=== PATIENT | female | born 1990 | race Caucasian/White ===

== ENCOUNTER 2017-02-18 22:24 | Emergency (ER) | payer OTHER ==
[2017-02-18] MEDS ORDERED: Ondansetron HCl/PF 4 MG/2 ML Vial ONE (22:52)
[2017-02-18 22:53] LABS: Bilirubin Small (Negative); Blood, Urine Moderate (Negative); Glucose, Urine (Dipstick) Negative (Negative); Ketone, Urine Negative (Negative); Nitrite Negative (Negative); Protein, Urine (Dipstick) Trace mg/dL (Neg-Trace); Urobilinogen 0.2 mg/dL (0.2-1.0)
[2017-02-18 22:54] LABS: #Eosinphils 0.2 thou/uL (0.0-0.7); #Lymphocytes 1.4 thou/uL (1.20-3.40); #Monocytes 0.7 thou/uL (0.11-0.59); %Basophils 0.4 % (0.0-1.0); %Eosinophils 1.4 % (0.0-10.0); %Lymphocytes 12.2 % (21.0-51.0); %Monocytes 6.5 % (0.0-10.0); Hematocrit 44.8 % (36.0-47.0); Mean Platelet Volume 9.1 fL (7.4-10.4); Red Blood Cell (RBC) Count 4.61 mill/uL (4.20-5.40); White Blood Cell (WBC) Count 11.3 thou/uL (4.8-10.8)
[2017-02-18 22:55] LABS: Bacteria/HPF None Seen HPF (None Seen)
[2017-02-18 23:10] LABS: Hyaline Casts/LPF 0-3 HYALINE CAST LPF (0-3 Hyaline)
[2017-02-18] MEDS ORDERED: Ketorolac Tromethamine 30 MG/ML VIAL ONE (23:28)
[2017-02-18] MEDS ORDERED: Morphine 4 MG/ML VIAL ONE (23:28)
[2017-02-18 23:35] LABS: ALT (SGPT) 12 U/L (8-55); ALT (SGPT) 14 U/L (8-55); AST (SGOT) 19 U/L (5-34); AST (SGOT) 24 U/L (5-34); Alkaline Phosphatase 79 U/L (40-150); Alkaline Phosphatase 81 U/L (40-150); Anion Gap 14 mmol/L (10-20); BUN (Urea Nitrogen) 13 mg/dL (7.0-18.7); Bilirubin, Direct 0.3 mg/dL (0.1-0.3); Bilirubin, Total 0.6 mg/dL (0.2-1.2); Calc. Creatinine Clearance 0 mL/min (70-130); Calcium 9.3 mg/dL (7.8-10.44); Carbon Dioxide 26 mmol/L (22-29); Chloride 102 mmol/L (98-107); Estimated GFR-MDRD 58; Globulin 3.4 g/dL (2.4-3.5); Lipase 18 U/L (8-78); Protein, Total 7.4 g/dL (6.0-8.3); Protein, Total 7.7 g/dL (6.0-8.3)
--- NOTE | 2017-02-19 07:28 | CT ---
NONCONTRAST ENHANCED CT IMAGES OF THE ABDOMEN AND PELVIS: History: 26-year-old with history of vomiting and left sided pain. FINDINGS: The lung bases are unremarkable. No evidence of free intraperitoneal air is seen. The liver, spleen, gallbladder and pancreas are unremarkable. Adrenal glands are unremarkable. The ri ght kidney is unremarkable. There is a slight degree of perirenal fat stranding surrounding the left kidney. There is also some m ild dilation of the left renal pelvis and ureter. No definite evidence of obstructing calculi is seen . There does appear to be a tiny, approximately 1-2 mm, bladder calculus which may have passed the le ft ureter, not appearing to be in the urinary bladder. Could this patient have recently passes a smal l renal calculus? No dilated loops of small bowel are seen. The colon is unremarkable. IMPRESSION: 1. Mild to moderate dilatation of the left renal pelvis and ureter with surrounding inflammatory kelly ge or edema. 2. Possible recently passed renal calculus, 1-2 mm in diameter, within the urinary bladder. POS: DEXTER
== END 2017-02-19 00:45 | disposition home or self-care (01) ==
LOC: ERS 22:24
DX: N20.0 Calculus of kidney (principal); F41.9 Anxiety disorder, unspecified; F32.9 Major depressive disorder, single episode, unspecified; F17.210 Nicotine dependence, cigarettes, uncomplicated
CPT/HCPCS: 74176; 80053; 81003; 81015; 81025; 83690; 84702; 85025; 96361; 96374; 96375; J1885; J2270; J2405